=== PATIENT | female | born 1995 | race African-American/Black ===

== ENCOUNTER 2017-05-21 17:40 | Emergency (ER) | payer MEDICAID ==
[~2017-05-21] VITALS: Ht 170.2 cm; Wt 59.9 kg
--- NOTE | 2017-05-21 18:27 | Emergency Room Report ---
History of Present Illness General Chief Complaint: Nausea, Vomiting, and Diarrhea Source: Patient Present Illness HPI 21 yo female patient presents to ER complaining of vomiting for the past few hours. Patient reports 4 episodes of vomiting following eating a taco earlier today. Patient denies blood in vomit. Patient reports no one else with similar symptoms; states no one else ate the Tacos. Patient denies nausea currently. Patient denies diarrhea, abdominal pain. Denies fever, chest pain, SOB. Allergies: Coded Allergies: No Known Allergies (Unverified , 05/21/17) Patient History Past Medical History: see triage record Last Menstrual Period: 05/06/2017 Reviewed Nursing Documentation: PMH: Agreed, PSxH: Agreed Nursing Documentation-PMH Past Medical History: No Stated History Review of Systems All Other Systems: negative except mentioned in HPI Physical Exam Vital Signs Date Time Temp Pulse Resp B/P (MAP) Pulse Ox O2 Delivery O2 Flow Rate FiO2 05/21/17 18:09 98.6 91 16 121/77 100 Room Air 98.6 Sp02 EP Interpretation: reviewed, normal General Appearance: well appearing, no apparent distress, alert, GCS 15 Head: normocephalic, atraumatic Eyes: bilateral eye normal inspection, bilateral eye PERRL ENT: hearing grossly normal, normal pharynx, no angioedema, normal voice, uvula midline, moist mucus membranes Neck: full range of motion Respiratory: lungs clear, normal breath sounds, no rhonchi, no respiratory distress, no accessory muscle use, no wheezing, speaking full sentences Cardiovascular #1: regular rate, rhythm Gastrointestinal: non tender, soft, no mass, non-distended, no guarding, no rebound Genitourinary: no CVA tenderness Musculoskeletal: back normal, digits/nails normal, gait/station normal, normal range of motion, non-tender Neurologic: alert, oriented x3, responsive, motor strength/tone normal, sensory intact Psychiatric: mood/affect normal Skin: no rash Lymphatic: no adenopathy Medical Decision Making PA Attestation Dr. Stratton is my supervising Physician whom patient management has been discussed with. Diagnostic Impression: Primary Impression: Vomiting ER Course Pt. presents to the ED c/o vomiting. Ddx considered but are not limited to gastritis, viral syndrome, food poisoning. Vital signs: are WNL, pt. is afebrile No blood in vomit. Patient does not require imaging or labs at this time. ORDERS: none required at this time, the diagnosis is clinical ED INTERVENTIONS: Zofran provided to patient. Patient reports feeling better following administration of medication. Patient able to tolerate PO fluids at this time. DISCHARGE: Rx provided for Zofran At this time pt is stable for d/c to home. Patient is resting comfortably, in no acute distress, nontoxic appearing, talking without difficulty. Patient to take medications as instructed Will provide with patient care instructions and any necessary prescriptions. Care plan and follow-up instructions provided. Patient instructed to follow-up with primary care provider in 3 - 5 days. Patient questions asked and answered. Patient reports understanding and agreement to treatment plan. ER precautions given. Patient instructed to return to ER immediately for any new or worsening of symptoms including but not limited to increasing SOB, persistent fever, intractable vomiting. Last Vital Signs Date Time Temp Pulse Resp B/P (MAP) Pulse Ox O2 Delivery O2 Flow Rate FiO2 05/21/17 18:09 98.6 91 16 121/77 100 Room Air 98.6 Disposition: HOME, SELF-CARE Condition: Stable Scripts Acetaminophen* (TYLENOL EXTRA STRENGTH*) 500 Mg Tablet 500 MG ORAL Q8H Y for Prn Headache/Temp > 101, #30 TAB 0 Refills Prov: Don Ohara 05/21/17 Ondansetron Odt* (ZOFRAN ODT*) 4 Mg Tab.rapdis 4 MG ORAL Q8H Y for Nausea & Vomiting, #30 TAB 0 Refills Prov: Don Ohara 05/21/17 Patient Instructions: Nausea and Vomiting, Adult, [id number] Additional Instructions: Followup with primary care provider in 3 -5 days. Take medications as directed. Patient questions asked and answered. ER precautions given, patient instructed to return to ER immediately for any new or worsening of symptoms. Don Ohara May 21, 2017 18:27
[2017-05-21] MEDS ORDERED: TYLENOL EXTRA500 MG ORAL (18:34)
[2017-05-21] MEDS ORDERED: ZOFRAN ODT4 MG ORAL (18:34)
[2017-05-21 18:51] VITALS: BP 111/68
== END 2017-05-21 18:55 | disposition home or self-care (01) ==
LOC: EMR 18:18
DX: R11.2 Nausea with vomiting, unspecified (principal)
CPT/HCPCS: 99283

== ENCOUNTER 2018-04-05 16:14 | Emergency (ER) | payer MEDICAID ==
[~2018-04-05] VITALS: Ht 170.2 cm; Wt 69.9 kg
[~2018-04-05 16:14] MED LIST: TYLENOL EXTRA500 MG ORAL; ZOFRAN ODT4 MG ORAL
[2018-04-05 16:35] VITALS: BP 118/75
--- NOTE | 2018-04-05 17:30 | Emergency Room Report ---
History of Present Illness General Chief Complaint: Sore Throat Source: Patient Present Illness HPI 22-year-old female presents to the emergency department complaining of 7 out of 10 in severity right ear pain, sore throat, nasal congestion and cough 3 days. Patient reports ear pain started today and was very significant. Patient reports low-grade fevers that responded well to Tylenol and Motrin. Denies high fevers, lethargy, neck pain/stiffness, irritability, photophobia dehydration, N/ V/D. Denies Cp, Palpitations, LOC, AMS, seizures, paresthesias, or changes in Hearing or vision, no Sudden severe MANTILLA. Denies hx of smoking, asthma or COPD. Allergies: Coded Allergies: No Known Allergies (Unverified , 04/05/18) Patient History Past Medical History: see triage record Past Surgical History: none Pertinent Family History: none Last Menstrual Period: Mar 2018 Now: No Reviewed Nursing Documentation: PMH: Agreed; PSxH: Agreed Nursing Documentation-PMH Past Medical History: No Stated History Review of Systems All Other Systems: negative except mentioned in HPI Physical Exam Vital Signs Date Time Temp Pulse Resp B/P (MAP) Pulse Ox O2 Delivery O2 Flow Rate FiO2 04/05/18 16:24 98.2 85 16 122/76 99 Room Air Sp02 EP Interpretation: reviewed, normal General Appearance: no apparent distress, alert, GCS 15, non-toxic Head: normocephalic, atraumatic Eyes: bilateral eye normal inspection, bilateral eye PERRL ENT: hearing grossly normal, normal voice, uvula midline, moist mucus membranes , nasal congestion, pharyngeal erythema, other - Right TM is erythematous and bulding Neck: full range of motion, no meningismus, no bony tend Respiratory: chest non-tender, lungs clear, normal breath sounds, speaking full sentences Cardiovascular #1: regular rate, rhythm, no edema Musculoskeletal: back normal, gait/station normal, normal range of motion, non- tender Neurologic: alert, oriented x3, responsive, motor strength/tone normal, sensory intact, speech normal, grossly normal Psychiatric: judgement/insight normal Skin: normal color, no rash, warm/dry, well hydrated Lymphatic: no adenopathy Medical Decision Making PA Attestation Dr. Zhao is my supervising Physician whom patient management has been discussed with. Diagnostic Impression: Primary Impression: Otitis media Qualified Codes: H66.90 - Otitis media, unspecified, unspecified ear Additional Impression: URI, acute ER Course 22-year-old female presents to the emergency department complaining of 7 out of 10 in severity right ear pain, sore throat, nasal congestion and cough 3 days. Patient reports ear pain started today and was very significant. Patient reports low-grade fevers that responded well to Tylenol and Motrin. Denies high fevers, lethargy, neck pain/stiffness, irritability, photophobia dehydration, N/ V/D. Denies Cp, Palpitations, LOC, AMS, seizures, paresthesias, or changes in Hearing or vision, no Sudden severe MANTILLA. Denies hx of smoking, asthma or COPD. Ddx considered but are not limited to OM, OE, mastoiditis, TM perforation, FB, URI, strep, pharyngitis, PND. Vital signs: are WNL, pt. is afebrile H&PE are most consistent with otitis media ORDERS: none required at this time, the diagnosis is clinical -OTOSCOPY: Right TM is erythematous and bulging ED INTERVENTIONS: None required at this time. DISCHARGE: At this time pt. is stable for d/c to home. With PO ABX. Will provide printed patient care instructions, and any necessary prescriptions. Care plan and follow up instructions have been discussed with the patient prior to discharge. Last Vital Signs Date Time Temp Pulse Resp B/P (MAP) Pulse Ox O2 Delivery O2 Flow Rate FiO2 04/05/18 16:35 98.2 76 16 118/75 99 Room Air Disposition: HOME, SELF-CARE Condition: Stable Scripts Pseudoephedrine Hcl* (NEXAFED*) 30 Mg Tablet 30 MG ORAL Q6H PRN for congestion, #30 TAB Prov: Odette Barnes 04/05/18 Lidocaine HCl 2% Viscous (Lidocaine HCl 2% Viscous) 100 Ml Solution 10 ML ORAL QID, #220 ML Prov: Odette Barnes 04/05/18 Amoxicillin/Potassium Clav 875-125* (AUGMENTIN 875-125 TABLET*) 1 Each Tablet 1 TAB ORAL TWICE A DAY for 7 Days, #14 TAB Prov: Odette Barnes 04/05/18 Codeine/Promethazine Hcl* (PROMETHAZINE-CODEINE SYRUP*) 118 Ml Syrup 5 ML ORAL Q6H PRN for For Cough, #120 ML 0 Refills Prov: Odette Barnes 04/05/18 Patient Instructions: Otitis Media, Adult, [id number], Upper Respiratory Infection, Adult, [id number] Additional Instructions: Take medications as directed. Follow up with a Primary Care Provider in 3-5 days, even if your symptoms have resolved. --Please review list of primary care clinics, if you do not already have a primary care provider Return sooner to ED if new symptoms occur, or current symptoms become worse. Do not drink alcohol, drive, or operate heavy machinery while taking Cough Syrup as this may cause drowsiness. - Please note that this Emergency Department Report was dictated using [employer]romedical[employer] department supervisor technology software, occasionally this can lead to erroneous entry secondary to interpretation by the dictation equipment. Odette Barnes Apr 05, 2018 17:30
[2018-04-05] MEDS ORDERED: LIDOCAINE VISC100 ML ORAL (17:40)
[2018-04-05] MEDS ORDERED: PROMETHAZINE-C118 M1 ORAL (17:40)
[2018-04-05] MEDS ORDERED: NEXAFED30 MG ORAL (17:40)
[2018-04-05] MEDS ORDERED: AUGMENTIN 875-1 EAC1 ORAL (17:40)
[2018-04-05 17:52] VITALS: BP 120/60
== END 2018-04-05 17:55 | disposition home or self-care (01) ==
LOC: EMR 17:52
DX: H66.91 Otitis media, unspecified, right ear (principal); J06.9 Acute upper respiratory infection, unspecified
CPT/HCPCS: 99282

== ENCOUNTER 2019-02-21 18:52 | Emergency (ER) | payer MEDICAID ==
[~2019-02-21] VITALS: Ht 170.2 cm; Wt 72.6 kg
[~2019-02-21 18:52] MED LIST changes: +AUGMENTIN 875-1 EAC1 ORAL; +LIDOCAINE VISC100 ML ORAL; +NEXAFED30 MG ORAL; +PROMETHAZINE-C118 M1 ORAL
[2019-02-21 19:10] VITALS: BP 108/67
--- NOTE | 2019-02-21 19:10 | NUR ---
ED Nurse Note: pt walked in c/o flu like sx for past three days, cough and sorethroat. noted occasional dry cough, will cont monitor. airway intact, no sx resp distress.
--- NOTE | 2019-02-21 19:15 | Emergency Room Report ---
History of Present Illness General Chief Complaint: Upper Respiratory Illness Source: Patient Present Illness HPI 23-year-old female with no significant past medical history other than asthma here complaining of 4 days of a 10 out of 10 sore throat and cough and congestion. Reports has not taken medication for symptom relief. Denies recent travel or sick contact. Denies tobacco smoke. Denies abdominal pain, nausea vomiting, urinary symptoms. Patient reports that she uses her albuterol inhaler at home for her asthma however has not used in the past few days. Allergies: Coded Allergies: No Known Allergies (Unverified , 04/05/18) Patient History Past Medical History: see triage record Past Surgical History: unable to obtain Pertinent Family History: none Now: No Immunizations: UTD Reviewed Nursing Documentation: PMH: Agreed; PSxH: Agreed Nursing Documentation-PMH Past Medical History: No Stated History Review of Systems All Other Systems: negative except mentioned in HPI Physical Exam Vital Signs Date Time Temp Pulse Resp B/P (MAP) Pulse Ox O2 Delivery O2 Flow Rate FiO2 02/21/19 19:06 98.2 82 17 108/67 (81) 99 Room Air Sp02 EP Interpretation: reviewed, normal General Appearance: no apparent distress, alert, GCS 15, non-toxic Head: normocephalic, atraumatic Eyes: bilateral eye normal inspection, bilateral eye PERRL ENT: EOM grossly intact, no angioedema, TMs + canals normal, nasal congestion, pharyngeal erythema, tonsillar exudate Neck: full range of motion, supple, supple/symm/no masses Respiratory: chest non-tender, lungs clear, normal breath sounds, no rhonchi, no respiratory distress, no retraction, no accessory muscle use, no wheezing, speaking full sentences Cardiovascular #1: regular rate, rhythm, no edema, no murmur, normal capillary refill Gastrointestinal: normal bowel sounds, non tender, soft, non-distended, no guarding, no rebound Rectal: deferred Genitourinary: no CVA tenderness Musculoskeletal: back normal, normal range of motion Neurologic: alert, motor strength/tone normal, oriented x3, sensory intact, responsive, speech normal Psychiatric: judgement/insight normal, memory normal, mood/affect normal, no suicidal/homicidal ideation Skin: no rash Lymphatic: no adenopathy Medical Decision Making PA Attestation All my diagnosis and treatment plans were reviewed ad discussed with my supervising physician Dr. Jones Diagnostic Impression: Primary Impression: Strep pharyngitis ER Course 23-year-old female with no significant past medical history other than asthma here complaining of 4 days of a 10 out of 10 sore throat and cough and congestion. Reports has not taken medication for symptom relief. Denies recent travel or sick contact. Denies tobacco smoke. Denies abdominal pain, nausea vomiting, urinary symptoms. Patient reports that she uses her albuterol inhaler at home for her asthma however has not used in the past few days. Ddx considered but are not limited to: strep pharyngitis, URI, tonsillitis, peritonsillar abscess, influneza Vital signs: are WNL, pt. is afebrile H&PE are most consistent with: Strep pharyngitis ORDERS: Azithromycin, guaifenesin, Flonase ED INTERVENTIONS: None required at this time. DISCHARGE: At this time pt. is stable for d/c to home. Will provide printed patient care instructions, and any necessary prescriptions. Care plan and follow up instructions have been discussed with the patient prior to discharge. Patient to follow-up with her primary care provider, if worsening symptoms return to the emergency room Last Vital Signs Date Time Temp Pulse Resp B/P (MAP) Pulse Ox O2 Delivery O2 Flow Rate FiO2 02/21/19 19:06 98.2 82 17 108/67 (81) 99 Room Air Disposition: HOME, SELF-CARE Condition: Stable Scripts Guaifenesin* (GUAIFENESIN) 100 Mg/5 Ml Liquid 5 ML ORAL Q8H, #120 ML 0 Refills Prov: Brian Dia 02/21/19 Fluticasone Propionate (Flonase Allergy Relief) 9.9 Ml [place].susp 2 PUFFS NS BID, #10 ML Prov: Brian Dia 02/21/19 Azithromycin* (ZITHROMAX*) 250 Mg Tablet 250 MG ORAL DAILY, #6 TAB 0 Refills Take two tables once daily for 1 day, then one tablet once daily for 4 days. Prov: Brian Dia 02/21/19 Patient Instructions: Pharyngitis Additional Instructions: Take medication as directed, follow-up with your primary care physician, if worsening symptoms return to the emergency room Brian Dia Feb 21, 2019 19:15
[2019-02-21] MEDS ORDERED: GUAIFENESI100 MG/5 M ORAL (19:16)
[2019-02-21] MEDS ORDERED: FLONASE ALLERG9.9 ML NS (19:16)
[2019-02-21] MEDS ORDERED: ZITHROMAX250 MG ORAL (19:16)
--- NOTE | 2019-02-21 19:22 | NUR ---
ED Nurse Note: pt cleared to be d/c per ER provider, pt discharge and aftercare instruction provided w/ prescription, pt education done via discussion and handout, pt advised to follow up with pcp or return to ed if changes in condition, vss, ambulatory w/steady gait, left w/ all belongings accompanied by friend.
== END 2019-02-21 19:23 | disposition home or self-care (01) ==
LOC: EMR 19:18
DX: J02.0 Streptococcal pharyngitis (principal)
CPT/HCPCS: 99282

== ENCOUNTER 2019-06-09 01:05 | Emergency (ER) | payer MEDICAID ==
[~2019-06-09] VITALS: Ht 167.6 cm; Wt 69.4 kg
[~2019-06-09 01:05] MED LIST changes: +FLONASE ALLERG9.9 ML NS; +GUAIFENESI100 MG/5 M ORAL; +IBUPROFEN600 MG ORAL; +TAMIFLU75 MG ORAL; +ZITHROMAX250 MG ORAL
[2019-06-09 01:12] VITALS: BP 113/76
[2019-06-09] MEDS ORDERED: ZYRTEC10 MG ORAL (01:23)
[2019-06-09 01:26] VITALS: BP 113/76
--- NOTE | 2019-06-09 02:14 | Emergency Room Report ---
History of Present Illness General Chief Complaint: Allergies Source: Patient Present Illness HPI Patient presents with reports of increased pressure in the frontal sinus bilaterally onset 2 days ago Also complains of a Scratchy throat Reports that she has had this before with her allergies denies any posterior neck pain denies any runny nose Denies any cough denies any recent travel Pressure is 3 out of 10 COVID-19 risk:Contact w/high r: No COVID-19 risk:Travel to affect: No Has patient experienced patel: No Allergies: Coded Allergies: No Known Allergies (Unverified , 04/05/18) Patient History Past Medical History: see triage record Last Menstrual Period: 05/27/19 Now: No : 2 Para: 1 Reviewed Nursing Documentation: PMH: Agreed; PSxH: Agreed Nursing Documentation-PMH Past Medical History: No Stated History Review of Systems All Other Systems: negative except mentioned in HPI Physical Exam Vital Signs Date Time Temp Pulse Resp B/P (MAP) Pulse Ox O2 Delivery O2 Flow Rate FiO2 06/09/19 01:08 98.1 88 18 113/76 (88) 100 Room Air Sp02 EP Interpretation: reviewed, normal General Appearance: well appearing, no apparent distress Head: normocephalic, atraumatic Eyes: bilateral eye PERRL, bilateral eye EOMI ENT: hearing grossly normal, normal pharynx, TMs + canals normal, uvula midline , other - Some mild reproducible discomfort palpation of the bilateral maxillary sinus area Neck: full range of motion, supple, no meningismus, no bony tend Respiratory: lungs clear, normal breath sounds, no rhonchi, no respiratory distress, no retraction, no accessory muscle use Cardiovascular #1: normal peripheral pulses, regular rate, rhythm, no edema, no gallop, no JVD, no murmur Gastrointestinal: normal bowel sounds, non tender, soft, no mass, no organomegaly, non-distended, no guarding, no hernia, no pulsatile mass, no rebound Genitourinary: no CVA tenderness Musculoskeletal: normal inspection Neurologic: motor strength/tone normal, venetian blind installer III-XII nml as tested, oriented x3 , sensory intact, responsive Psychiatric: mood/affect normal Skin: no rash Lymphatic: normal inspection, no adenopathy Medical Decision Making Diagnostic Impression: Primary Impression: sinusitis ER Course Multiple differentials including but not limited to sinusitis, allergies,covid 19 entertained Patient does not appear septic or toxic is afebrile here Exam is consistent with possible early sinusitis patient will be placed on appropriate medication and return with any changes or concerns Last Vital Signs Date Time Temp Pulse Resp B/P (MAP) Pulse Ox O2 Delivery O2 Flow Rate FiO2 06/09/19 01:26 98.1 88 18 113/76 100 Room Air Status: unchanged Disposition: HOME, SELF-CARE Condition: Stable Scripts Cetirizine Hcl* (ZYRTEC*) 10 Mg Tablet 10 MG ORAL DAILY, #20 TAB 0 Refills Prov: Cee Jones DO 06/09/19 Referrals: NON PHYSICIAN (PCP) [facility] Patient Instructions: Sinusitis, Adult, [id number] Additional Instructions: Patient is provided with the discharge instructions notified to follow up with primary doctor in the next 2-3 days otherwise return to the er with any worsening symptoms. Please note that this report is being documented using [employer] technology. This can lead to erroneous entry secondary to incorrect interpretation by the dictating instrument. Cee Jones DO Jun 09, 2019 02:14
== END 2019-06-09 01:35 | disposition home or self-care (01) ==
LOC: EMR 01:32
DX: J32.9 Chronic sinusitis, unspecified (principal)
CPT/HCPCS: 99282

== ENCOUNTER 2019-09-03 19:04 | Emergency (ER) | payer MEDICAID ==
[~2019-09-03] VITALS: Ht 170.2 cm; Wt 68.0 kg
[~2019-09-03 19:04] MED LIST changes: +ZYRTEC10 MG ORAL
--- NOTE | 2019-09-03 19:21 | Emergency Room Report ---
History of Present Illness General Chief Complaint: Abdominal Pain Source: Patient Present Illness HPI Patient is a 23-year-old female denies any significant past medical history who presents to the ER complaining of lower abdominal pain for 1 week. She states it is worse when she is walking and when she eats. She complains of nausea but denies any vomiting. She denies any fever or chills. She denies any dysuria or hematuria. She states her last menstrual period was 1 week ago. She denies any chest pain or shortness of breath. Allergies: Coded Allergies: No Known Allergies (Unverified , 04/05/18) COVID-19 Screening Contact w/high risk pt: No Recent Travel to affected area: No Experienced COVID-19 symptoms?: No COVID-19 Testing performed ENERGY ADVISOR: No Patient History Last Menstrual Period: 08/2019 Reviewed Nursing Documentation: PMH: Agreed; PSxH: Agreed Nursing Documentation-PMH Past Medical History: No Stated History Review of Systems All Other Systems: negative except mentioned in HPI Physical Exam Vital Signs Date Time Temp Pulse Resp B/P (MAP) Pulse Ox O2 Delivery O2 Flow Rate FiO2 09/03/19 19:10 98.4 105 16 114/75 (88) 100 Room Air Sp02 EP Interpretation: reviewed, normal General Appearance: no apparent distress, alert, GCS 15, non-toxic Head: normocephalic, atraumatic Eyes: bilateral eye normal inspection, bilateral eye PERRL ENT: hearing grossly normal, normal pharynx, no angioedema, normal voice Neck: full range of motion, supple/symm/no masses Respiratory: chest non-tender, lungs clear, normal breath sounds, speaking full sentences Cardiovascular #1: no edema, tachycardia Gastrointestinal: other - Bilateral lower abdominal tenderness with no guarding or rebound Rectal: deferred Genitourinary: no CVA tenderness Musculoskeletal: normal range of motion, no calf tenderness Neurologic: spiral weaver III-XII nml as tested, oriented x3 Psychiatric: no suicidal/homicidal ideation Skin: no rash Lymphatic: no adenopathy Medical Decision Making Diagnostic Impression: Primary Impression: Urinary tract infection Additional Impression: Abdominal pain ER Course Patient's labs demonstrate mildly elevated WBC count. UA positive for UTI. Patient started on Macrobid. CT demonstrates no acute intra-abdominal pathology. After discussing risks and benefits of further diagnostics, treatment plans, as well as indications for and risks of admission, the patient is agreeable to being discharged home. I have explained that their evaluation and treatment in the emergency department today is an important step towards them achieving better health but that their evaluation today is not intended to replace further evaluation and treatment by a physician in their local clinic. I have explained that while the current findings suggest no immediate life threatening emergency they will require further evaluation and treatment by a physician of their choice in their area. They understand that it will be necessary for them to review the final reports of their ED visit with their clinic physician. We have reviewed indications for return to the Emergency Department. I have explained that additional time may need to pass and/or additional testing as an outpatient may be necessary before a definitive diagnosis can be made. They tell me they are willing to follow up as instructed within the timeframe I recommend. They appear to understand what we discussed. Additionally they understand that if they are unable to be seen by an outpatient physician they are welcome, and in fact should, return to the Emergency Department for a repeat evaluation. The patient is stable at time of discharge. Laboratory Tests Test 09/03/19 19:30 White Blood Count 11.0 K/UL (4.8-10.8) H Red Blood Count 4.20 M/UL (4.20-5.40) Hemoglobin 11.7 G/DL (12.0-16.0) L Hematocrit 37.9 % (37.0-47.0) Mean Corpuscular Volume 90 FL (80-99) Mean Corpuscular Hemoglobin 27.8 PG (27.0-31.0) Mean Corpuscular Hemoglobin Concent 30.7 G/DL (32.0-36.0) L Red Cell Distribution Width 13.5 % (11.6-14.8) Platelet Count 240 K/UL (150-450) Mean Platelet Volume 9.4 FL (6.5-10.1) Neutrophils (%) (Auto) 77.3 % (45.0-75.0) H Lymphocytes (%) (Auto) 17.3 % (20.0-45.0) L Monocytes (%) (Auto) 4.4 % (1.0-10.0) Eosinophils (%) (Auto) 0.4 % (0.0-3.0) Basophils (%) (Auto) 0.6 % (0.0-2.0) Urine Color Yellow Urine Appearance Clear Urine pH 8 (4.5-8.0) Urine Specific [place] 1.010 (1.005-1.035) Urine Protein Negative (NEGATIVE) Urine Glucose (UA) Negative (NEGATIVE) Urine Ketones Negative (NEGATIVE) Urine Blood Negative (NEGATIVE) Urine Nitrite Negative (NEGATIVE) Urine Bilirubin Negative (NEGATIVE) Urine Urobilinogen 4 MG/DL (0.0-1.0) H Urine Leukocyte Esterase 2+ (NEGATIVE) H Urine RBC 2-4 /HPF (0 - 2) H Urine WBC 15-20 /HPF (0 - 2) H Urine Squamous Epithelial Cells Few /LPF (NONE/OCC) Urine Bacteria Few /HPF (NONE) Urine HCG, Qualitative Negative (NEGATIVE) Sodium Level 140 MMOL/L (136-145) Potassium Level 3.5 MMOL/L (3.5-5.1) Chloride Level 102 MMOL/L (98-107) Carbon Dioxide Level 27 MMOL/L (21-32) Anion Gap 11 mmol/L (5-15) Blood Urea Nitrogen 12 mg/dL (7-18) Creatinine 1.0 MG/DL (0.55-1.30) Estimated Glomerular Filtration Rate > 60 mL/min (>60) Glucose Level 81 MG/DL (74-106) Calcium Level 8.8 MG/DL (8.5-10.1) Magnesium Level 1.7 MG/DL (1.8-2.4) L Total Bilirubin 0.4 MG/DL (0.2-1.0) Aspartate Amino Transferase (AST) 12 U/L (15-37) L Alanine Aminotransferase (ALT) 16 U/L (12-78) Alkaline Phosphatase 83 U/L (46-116) Total Protein 7.9 G/DL (6.4-8.2) Albumin 4.2 G/DL (3.4-5.0) Globulin 3.7 g/dL Albumin/Globulin Ratio 1.1 (1.0-2.7) Lipase 123 U/L (73-393) Urine Opiates Screen Negative (NEGATIVE) Urine Barbiturates Screen Negative (NEGATIVE) Phencyclidine (PCP) Screen Negative (NEGATIVE) Urine Amphetamines Screen Negative (NEGATIVE) Urine Benzodiazepines Screen Negative (NEGATIVE) Urine Cocaine Screen Negative (NEGATIVE) Urine Marijuana (THC) Screen Negative (NEGATIVE) Rhythm Strip Diag. Results Rhythm Strip Time: 21:32 EP Interpretation: yes - Nanette Cervantes MD Rate: 89 Rhythm: NSR, no PVC's, no ectopy Last Vital Signs Date Time Temp Pulse Resp B/P (MAP) Pulse Ox O2 Delivery O2 Flow Rate FiO2 09/03/19 19:10 98.4 105 16 114/75 (88) 100 Room Air Disposition: HOME, SELF-CARE Condition: Stable Scripts Nitrofurantoin Monohyd/M-Cryst* (MACROBID 100 MG*) 100 Mg Capsule 100 MG ORAL EVERY 12 HOURS for 7 Days, #14 CAP Prov: Nanette Cervantes M.D. 09/03/19 Ondansetron* (ZOFRAN*) 4 Mg Tablet 4 MG ORAL Q6H PRN for Nausea & Vomiting, #10 TAB Prov: Nanette Cervantes M.D. 09/03/19 Additional Instructions: The patient was provided with discharge instructions, notified to follow-up with a primary care doctor and or specialist in the next 24-48 hours, and to return to the ED if they have worsening of their symptoms. Please note that this report is being documented using [employer] technology. This can lead to erroneous entry secondary to incorrect interpretation by the dictating instrument. Nanette Cervantes M.D. Sep 03, 2019 19:21
[2019-09-03 19:34] VITALS: BP 117/73
[2019-09-03 20:20] LABS: BASOPHILS % (AUTO) 0.6 % (0.0-2.0); EOSINOPHILS % (AUTO) 0.4 % (0.0-3.0); HEMATOCRIT 37.9 % (37.0-47.0); HEMOGLOBIN 11.7 G/DL (12.0-16.0); LYMPHOCYTES % (AUTO) 17.3 % (20.0-45.0); MEAN CORPUSCULAR VOLUME 90 FL (80-99); MONOCYTES % (AUTO) 4.4 % (1.0-10.0); NEUTROPHILS % (AUTO) 77.3 % (45.0-75.0); PLATELET COUNT 240 K/UL (150-450); RED CELL DISTRIBUTION WIDTH 13.5 % (11.6-14.8)
[2019-09-03 20:22] LABS: APPEARANCE,URINE CLEAR; BILIRUBIN, URINE NEGATIVE (NEGATIVE); GLUCOSE, URINE (UA) NEGATIVE (NEGATIVE); KETONES,URINE NEGATIVE (NEGATIVE); LEUKOCYTE ESTERASE ,URINE 2+ (NEGATIVE); NITRITE,URINE NEGATIVE (NEGATIVE); PH,URINE 8 (4.5-8.0); PROTEIN,URINE NEGATIVE (NEGATIVE); UROBILINOGEN,URINE 4 MG/DL (0.0-1.0)
[2019-09-03 20:25] LABS: ANION GAP 11 mmol/L (5-15); BLOOD UREA NITROGEN 12 mg/dL (7-18); CALCIUM 8.8 MG/DL (8.5-10.1); CARBON DIOXIDE 27 MMOL/L (21-32); CHLORIDE 102 MMOL/L (98-107); POTASSIUM 3.5 MMOL/L (3.5-5.1); SODIUM 140 MMOL/L (136-145)
[2019-09-03 20:29] LABS: ALANINE AMINOTRANSFERASE 16 U/L (12-78); ALBUMIN 4.2 G/DL (3.4-5.0); ALBUMIN/GLOBULIN RATIO 1.1 (1.0-2.7); ALKALINE PHOSPHATASE 83 U/L (46-116); ASPARTATE AMINO TRANSFERASE 12 U/L (15-37); BILIRUBIN,TOTAL 0.4 MG/DL (0.2-1.0)
[2019-09-03 20:35] LABS: COLOR,URINE YELLOW
[2019-09-03 21:00] VITALS: BP 113/69
--- NOTE | 2019-09-03 21:29 | Diagnostic Imaging Report ---
EXAM: CT Abdomen and Pelvis Without Intravenous Contrast CLINICAL HISTORY: PAIN TECHNIQUE: Axial computed tomography images of the abdomen and pelvis without intravenous contrast. CTDI is 5.9 mGy and DLP is 302 mGy-cm. One or more of the following dose reduction techniques were used: automated exposure control, adjustment of the mA and/or kV according to patient size, use of iterative reconstruction technique. COMPARISON: None available. FINDINGS: Lung bases: Unremarkable. No mass. No consolidation. ABDOMEN: Liver: Unremarkable. Gallbladder and bile ducts: Unremarkable. No calcified stones. No ductal dilation. Pancreas: Unremarkable. No ductal dilation. Spleen: Unremarkable. No splenomegaly. Adrenals: Unremarkable. No mass. Kidneys and ureters: Diffuse punctate calcifications are demonstrated within the renal medullar bilaterally. No hydronephrosis. Stomach and bowel: Unremarkable. No obstruction. No mucosal thickening. PELVIS: Appendix: No findings to suggest acute appendicitis. Bladder: Unremarkable. No stones. Reproductive: Unremarkable as visualized. ABDOMEN and PELVIS: Intraperitoneal space: Unremarkable. No free air. No significant fluid collection. Bones/joints: No acute fracture. No dislocation. Soft tissues: Unremarkable. Vasculature: Unremarkable. No abdominal aortic aneurysm. Lymph nodes: Unremarkable. No enlarged lymph nodes. IMPRESSION: 1. No acute findings in the abdomen or pelvis. 2. Bilateral medullary nephrocalcinosis. Large differential, which includes hyperparathyroidism, medullary sponge kidney among others.
[2019-09-03] MEDS ORDERED: NITROFURANTOIN100 M2 ORAL (21:30)
[2019-09-03] MEDS ORDERED: ZOFRAN4 M3 ORAL (21:30)
[2019-09-03 21:33] VITALS: BP 117/73
== END 2019-09-03 21:33 | disposition home or self-care (01) ==
LOC: EMR 19:21
DX: N39.0 Urinary tract infection, site not specified (principal); R10.30 Lower abdominal pain, unspecified; R00.0 Tachycardia, unspecified
CPT/HCPCS: 36415; 74176; 80053; 80307; 81003; 81025; 83690; 83735; 85025; 87086; 96361; 96374; J2405; J7030; Z7502; 99284

== ENCOUNTER 2020-02-17 03:41 | Emergency (ER) | payer MEDICAID ==
[~2020-02-17] VITALS: Ht 167.6 cm; Wt 70.8 kg
[~2020-02-17 03:41] MED LIST changes: +NITROFURANTOIN100 M2 ORAL; +ZOFRAN4 M3 ORAL
[2020-02-17 04:03] VITALS: BP 108/60
--- NOTE | 2020-02-17 04:04 | NUR ---
Nurse Note: Pt arrived c/o LT eye pain since 02/14. Pt stated greenish discharge from eye; pain and itchiness. Pt stated eye is pink and swollen. Pt stated she wears contacts but did not wear them d/t pain.
[2020-02-17] MEDS ORDERED: Fluorescein Strips ONE (04:20)
[2020-02-17] MEDS ORDERED: Tetracaine 0.5% Opth 4ml Soln ONE (04:20)
[2020-02-17] MEDS ORDERED: CILOXAN5 ML OP (04:27)
[2020-02-17 04:28] VITALS: BP 108/60
--- NOTE | 2020-02-17 04:28 | NUR ---
ED Nurse Note: Pt cleared by health care Provider for discharge. DC instructions/prescription was given and explained to pt and verbalized understanding of teachings. Instructed pt to follow up with PCP within one week. All medical deviecs such as ID band removed. Pt is AAO x4, ambulatory and left with all personal belongings.
--- NOTE | 2020-02-17 17:40 | Emergency Room Report ---
History of Present Illness General Chief Complaint: Eye Problems Source: Patient Present Illness Allergies: Coded Allergies: No Known Allergies (Unverified , 04/05/18) COVID-19 Screening Contact w/high risk pt: No Recent Travel to affected area: No Experienced COVID-19 symptoms?: No COVID-19 Testing performed SILK FINISHER: No Patient History Last Menstrual Period: 01/2020 Nursing Documentation-[facility] Past Medical History: No Stated History Physical Exam Vital Signs Date Time Temp Pulse Resp B/P (MAP) Pulse Ox O2 Delivery O2 Flow Rate FiO2 02/17/20 03:56 98.6 83 16 108/60 (76) 97 Room Air Medical Decision Making Diagnostic Impression: Primary Impression: Conjunctivitis Last Vital Signs Date Time Temp Pulse Resp B/P (MAP) Pulse Ox O2 Delivery O2 Flow Rate FiO2 02/17/20 04:28 98.6 83 16 108/60 97 Room Air Status: improved Disposition: HOME, SELF-CARE Condition: Stable Scripts Ciprofloxacin HCl (Ciloxan) 5 Ml Drops 5 ML OP EVERY 4 HOURS for 5 Days, #5 ML Prov: Reinaldo Zhao MD 02/17/20 Referrals: NON PHYSICIAN Patient Instructions: Bacterial Conjunctivitis, [id number] Additional Instructions: Follow up with opthalmology for recheck. Return if worse. Have coronavirus testing performed. Reinaldo Zhao MD Feb 17, 2020 17:40
== END 2020-02-17 04:28 | disposition home or self-care (01) ==
LOC: EMR 04:18
DX: H10.9 Unspecified conjunctivitis (principal)
CPT/HCPCS: 99282